=== PATIENT | male | born 2000 | race Caucasian/White ===

== ENCOUNTER 2021-10-08 21:31 | Emergency (ER) | payer SELFPAY ==
[2021-10-08 21:40] VITALS: BP 109/71; PULSE 120; RESP 20; TEMP 36.8; O2SAT 95; BMI 28.5
[2021-10-08 23:13] VITALS: BP 107/62; PULSE 89; RESP 18; O2SAT 100
--- NOTE | 2021-10-08 23:29 | W.ED.NAVMDI ---
HPI - Nausea/Vomiting/Diarrhea General: Chief complaint: Nausea/Vomiting/Diarrhea Stated complaint: N/V/D Time Seen by Provider: 10/08/21 22:52 History of Present Illness: Patient is a 21-year-old male comes to the ED with nausea vomiting and diarrhea. Patient has a history of IBS. Symptoms started today when he woke up. All throughout the day he has had anywhere from 10-20 episodes of diarrhea. He is also having nausea and vomiting close to 10 times a day. He has not been able to keep any food or fluids down. Nobody that he has been in contact with has had any similar symptoms. Patient did say he ate some [employer] last night before going to bed. Denies any fever, chills, upper respiratory symptoms, abdominal pain, blood in the stool or urinary symptoms. Associated nausea: Yes Associated symtoms: Reports nausea; Denies change in vision, chest pain, dysuria, fatigue, headache(s) or palpitations Review of Systems Const: Denies: fever(s), chills or fatigue Eyes: Denies: change in vision or eye discomfort ENMT: Denies: throat pain, odynophagia, nasal discharge or nasal congestion Card: Denies: chest pain, palpitations, edema, swelling of feet/ankles, dyspnea on exertion or orthopnea Resp: Denies: dyspnea, productive cough or non-productive cough GI: Reports: nausea, vomiting and diarrhea; Denies: abdominal pain, constipation or hematochezia : Denies: flank pain, difficulty urinating, dysuria or hematuria Musc: Denies: neck pain, back pain or extremity swelling Skin/Breast: Denies: rash or new lesions Neuro: Denies: headache(s), numbness in extremities or weakness in extremities [facility] ED PFSH: Medical History IBS (irritable bowel syndrome) No pertinent family history Surgical History No pertinent past surgical history Physical Exam Const: COMMON NORMALS: no acute distress, patient oriented x3 and alert GENERAL APPEARANCE: cooperative and comfortable HENMT: COMMON NORMALS: normocephalic HEAD & SCALP: normocephalic MOUTH: Normal oral and palatal mucosa present THROAT: posterior oropharynx normal and uvula midline Eye: COMMON NORMALS: Equal, round and reactive pupils present and conjunctivae normal CONJUNCTIVA: Yes conjunctivae normal PUPIL: Yes Equal, round and reactive pupils present Neck/C-Spine: COMMON NORMALS: supple GENERAL: Yes normal visual inspection Resp: COMMON NORMALS: normal respiratory effort, No retractions, No use of accessory muscles and clear to auscultation bilaterally AUSCULTATION: clear to auscultation bilaterally Cardio: COMMON NORMALS: regular rate, regular rhythm, S1 normal heart sound present, S2 normal heart sound present, No gallops present (Cardio), No clicks present (Cardio), No murmurs present (Cardio) and Peripheral pulses 2+ throughout RATE: regular rate RHYTHM: regular rhythm HEART SOUNDS: S1 normal heart sound present and S2 normal heart sound present PERIPHERAL PULSES: Peripheral pulses 2+ throughout GI: COMMON NORMALS: Normal to inspection, nondistended, normoactive bowel sounds present, Soft to palpation, non-tender and no masses PALPATION: Yes Soft to palpation : COMMON NORMALS: Yes no CVA tenderness BLADDER/KIDNEY EXAM: Yes no CVA tenderness Back/Pelvis: COMMON NORMALS: no CVA tenderness Extremity: COMMON NORMALS: normal to inspection Neuro: COMMON NORMALS: patient oriented x3 and moves all extremities SENSORIUM/ORIENTATION: Yes alert Skin: GENERAL SKIN EXAM: dry skin Course Reevaluation(s): Reevaluation #1: After patient received 1 L of fluids and Zofran his symptoms improved. Patient is a feeling a lot better and does not have any nausea. He was given p.o. juice and water and was able to keep fluids down and has had no episodes of emesis here in the ED. He is stable for discharge home. Time: 00:50 Vital Signs: Vital signs: Vital Signs Temperature 98.2 F 10/08/21 21:40 Pulse Rate 68 10/09/21 01:13 Respiratory Rate 18 10/09/21 01:13 Blood Pressure 110/51 10/09/21 01:13 Pulse Oximetry 98 10/09/21 01:13 MDM - Nausea/Vomiting/Diarrhea Medical Decision Making Patient is a 21-year-old male comes to the ED with acute nausea and vomiting. Patient has a history of IBS. Symptoms started today. Denies any abdominal pain but has had many episodes of diarrhea and emesis today. Denies any fevers or any other symptoms. He did have some [employer] last night before going to bed and woke up with symptoms. Patient was tachycardic upon arrival here in the ED and his pulse was 120. Rest of his vitals were stable. Patient appears in no acute distress or pain upon exam. He has no abdominal tenderness. Rest of exam is benign. White blood cell count 11.8 and the rest of CBC, CMP and UA were unremarkable. Covid test was negative. He was given 1 L of IV fluids and some Zofran here in the ED and tachycardia improved. After the fluids and Zofran his symptoms improved. He was feeling a lot better and had no episodes of emesis here in the ED. He was able to have p.o. fluids without any episodes of emesis here in the ED. Patient nausea and vomiting and symptoms likely due to food poisoning versus GI virus. At Discharge his pulse was 60 and the rest of his vitals were stable. Patient would like a referral to get set up with a PCP. He was discharged home with a prescription for Zofran. He was given strict return to ED precautions. Patient understood and agreed with plan. Lab Data I reviewed the patient's lab results. : 10/08/21 23:16 10/08/21 23:16 Laboratory Results WBC 11.8 10^3/uL (4.0-10.0) H 10/08/21 23:16 RBC 5.20 10^6/uL (4.1-5.3) 10/08/21 23:16 Hgb 15.9 g/dL (11.7-16.6) 10/08/21 23:16 Hct 45.4 % (42.0-52.0) 10/08/21 23:16 MCV 87.3 fl (80-94) 10/08/21 23:16 MCH 30.6 pg (28.0-34.0) 10/08/21 23:16 MCHC 35.0 g/dL (30.0-36.0) 10/08/21 23:16 RDW 12.6 % (12.1-15.1) 10/08/21 23:16 Plt Count 217 10^3/cmm (130-400) 10/08/21 23:16 MPV 11.8 fL (7.4-10.4) H 10/08/21 23:16 Neut % (Auto) 83.1 % 10/08/21 23:16 Lymph % (Auto) 7.5 % 10/08/21 23:16 [place] % (Auto) 8.1 % 10/08/21 23:16 Eos % (Auto) 0.7 % 10/08/21 23:16 Baso % (Auto) 0.3 % 10/08/21 23:16 Neut # (Auto) 9.79 10^3/uL (1.8-7.7) H 10/08/21 23:16 Lymph # (Auto) 0.9 10^3/uL (0.8-4.8) 10/08/21 23:16 [place] # (Auto) 1.0 10^3/uL (0.2-0.9) H 10/08/21 23:16 Eos # (Auto) 0.1 10^3/uL (0.0-0.8) 10/08/21 23:16 Baso # (Auto) 0.0 10^3/uL (0.0-0.1) 10/08/21 23:16 Nucleated RBC % (auto) 0 % 10/08/21 23:16 Nucleated RBCs # 0.0 /100WBC 10/08/21 23:16 Sodium 138 mmol/L (136-145) 10/08/21 23:16 Potassium 4.0 mmol/L (3.5-5.1) 10/08/21 23:16 Chloride 103 mmol/L (98-107) 10/08/21 23:16 Carbon Dioxide 19 mmol/L (22-29) L 10/08/21 23:16 Anion Gap 20.0 (5-19) H 10/08/21 23:16 BUN 16 mg/dL (6-20) 10/08/21 23:16 Creatinine 0.9 mg/dL (0.7-1.2) 10/08/21 23:16 GFR Calculation 106.5 mL/min (90-130) 10/08/21 23:16 Glucose 105 mg/dL (65-115) 10/08/21 23:16 Calculated Osmolality 288 mOsm/kg (285-295) 10/08/21 23:16 Calcium 9.5 mg/dL (8.5-10.5) 10/08/21 23:16 Total Bilirubin 0.6 mg/dL (0.15-1.2) 10/08/21 23:16 AST 16 U/L (0-40) 10/08/21 23:16 ALT 13 U/L (0-41) 10/08/21 23:16 Alkaline Phosphatase 60 IU/L (40-130) 10/08/21 23:16 Total Protein 7.7 g/dL (6.6-8.7) 10/08/21 23:16 Albumin 4.9 g/dL (3.5-5.2) 10/08/21 23:16 Globulin 2.8 g/dL (1.3-4.6) 10/08/21 23:16 Lipase 59 U/L (13-60) 10/08/21 23:16 Urine Color Yellow (Yellow) 10/09/21 00:41 Urine Appearance Clear (CLEAR) 10/09/21 00:41 Urine pH 5 (5-7) 10/09/21 00:41 Ur Specific [place] 1.020 (1.005-1.030) 10/09/21 00:41 Urine Protein Trace (Negative) 10/09/21 00:41 Urine Glucose (UA) Norm (Normal) 10/09/21 00:41 Urine Ketones 3+ (Negative) H 10/09/21 00:41 Urine Blood Neg (Negative) 10/09/21 00:41 Urine Nitrate Negative (Negative) 10/09/21 00:41 Urine Bilirubin 1+ (Negative) H 10/09/21 00:41 Urine Urobilinogen Norm mg/dL (Negative) 10/09/21 00:41 Ur Leukocyte Esterase Negative (Negative) 10/09/21 00:41 Urine RBC 0-4 /hpf (0-2) H 10/09/21 00:41 Urine WBC 0-4 /hpf (0-5) H 10/09/21 00:41 Ur Squamous Epith Cells 0-4 /hpf (0-5) H 10/09/21 00:41 Amorphous Sediment Not Reportable 10/09/21 00:41 Urine Bacteria Trace /hpf (NONE) 10/09/21 00:41 Urine Mucus 2+ /hpf 10/09/21 00:41 Coronavirus 229E (PCR) Not detected (NOT DETECT) 10/09/21 00:41 SARS-CoV-2 (PCR) Not detected (NOT DETECT) 10/09/21 00:41 Discharge Plan Discharge Patient Disposition: Home Clinical Impression: Nausea and vomiting Qualifiers: Vomiting type: unspecified Qualified Code(s): R11.2 - Nausea with vomiting, unspecified Condition: Stable Prescriptions: New ondansetron 4 mg tablet,disintegrating 4 mg PO Q8H PRN (Reason: nausea and vomiting) Qty: 15 0RF Discharge Orders: Discharge ED (Routine); Ordered 10/09/21 Ordered By: Ricci Hoover Discharge Diet: Regular Discharge Activity: Increase activity as tolerated Patient Instructions: Acute Nausea and Vomiting (ED), Viral Syndrome (ED) Activity Restrictions/Additional Instructions: Follow-up with medical provider as directed. Case management should be contacting you in the next several days to set up an appointment with a primary care physician. GI symptoms likely due to virus. Make sure you drink plenty of fluids and stay hydrated. Your Covid test is pending and you can call [employer] [facility] tomorrow to get results. Take medications as prescribed. Return to the ER or your medical provider if condition worsens. Please read and understand discharge instructions. [facility] you [facility]. Please realize this is an emergency room and that we are providing you with a medical screening exam and this may not be complete and all inclusive of all the testing and or work up that you may need to determine your ailment or severity of your illness. It is very important that you follow up as instructed or that you return to the Emergency Department should you have concerns or if your condition changes or worsens in any way. Coding Level of Care Code ED Inspector Filter Tip for Gisela Flynn Exam Comprehensive
[2021-10-08] MEDS: sodium chloride 0.9% 1,000 ML 999 ML IV (23:30)
[2021-10-08 23:34] LABS: Basophils % 0.3 %; Eosinophils # 0.1 10^3/uL (0.0-0.8); Eosinophils % 0.7 %; Hematocrit 45.4 % (42.0-52.0); Hemoglobin 15.9 g/dL (11.7-16.6); Lymphocytes # 0.9 10^3/uL (0.8-4.8); Lymphocytes % 7.5 %; Mean Corpuscular Hemoglobin 30.6 pg (28.0-34.0); Mean Corpuscular Volume 87.3 fl (80-94); Mean Platelet Volume 11.8 fL (7.4-10.4); Monocytes % 8.1 %; Neutrophils # 9.79 10^3/uL (1.8-7.7); Neutrophils % 83.1 %; Nucleated Red Blood Cells % 0 %; Platelet Count 217 10^3/cmm (130-400); Red Cell Distribution Width 12.6 % (12.1-15.1); White Blood Count 11.8 10^3/uL (4.0-10.0)
[2021-10-08 23:43] VITALS: BP 106/55; PULSE 74; RESP 18; O2SAT 100
[2021-10-09 00:06] LABS: Alanine Aminotransferase 13 U/L (0-41); Albumin Level 4.9 g/dL (3.5-5.2); Alkaline Phosphatase 60 IU/L (40-130); Aspartate Amino Transferase 16 U/L (0-40); Blood Urea Nitrogen 16 mg/dL (6-20); Calcium 9.5 mg/dL (8.5-10.5); Carbon Dioxide 19 mmol/L (22-29); Chloride 103 mmol/L (98-107); Globulin 2.8 g/dL (1.3-4.6); Glomerular Filtration Rate 106.5 mL/min (90-130); Glucose 105 mg/dL (65-115); Lipase 59 U/L (13-60); Osmolality Calculated 288 mOsm/kg (285-295); Sodium 138 mmol/L (136-145); Total Bilirubin 0.6 mg/dL (0.15-1.2); Total Protein 7.7 g/dL (6.6-8.7)
[2021-10-09] MEDS: ondansetron 2 mg/ML SDV 2 mL 4 MG IVP (00:07)
[2021-10-09 00:13] VITALS: BP 100/52; PULSE 75; RESP 18; O2SAT 99
[2021-10-09 00:43] VITALS: BP 113/57; PULSE 72; RESP 18; O2SAT 98
[2021-10-09 00:56] LABS: Add Urine Microscopic? YES; Bilirubin Urine 1+ (Negative); Blood Urine Neg (Negative); Glucose Urine UA Norm (Normal); Ketones Urine 3+ (Negative); Leukocyte Esterase Urine Negative (Negative); Nitrate Urine Negative (Negative); Protein Urine Trace (Negative); Urine Appearance Clear (CLEAR); Urine Color Yellow (Yellow); Urobilinogen Urine Norm (Negative); pH Urine 5 (5-7)
[2021-10-09 01:03] LABS: Add Urine Culture? No; Bacteria Urine TRACE /hpf; Mucus Urine 2+ /hpf; RBC Urine 0-4 /hpf (0-2); Squamous Epithelial Cell Urine 0-4 /hpf (0-5); WBC Urine 0-4 /hpf (0-5)
[2021-10-09 01:13] VITALS: BP 110/51; PULSE 68; RESP 18; O2SAT 98
[2021-10-09 02:33] LABS: Adenovirus Not Detected (NOT DETECT); Chlamydia Pneumoniae Not Detected (NOT DETECT); Coronavirus 229E,HKU1,NL63,OC4 Not Detected (NOT DETECT); Human Metapneumovirus Not Detected (NOT DETECT); Human Rhinovirus/Enterovirus Not Detected (NOT DETECT); Influenza A Not Detected (NOT DETECT); Influenza A H1 Not Detected (NOT DETECT); Influenza A H1-2009 Not Detected (NOT DETECT); Influenza A H3 Not Detected (NOT DETECT); Influenza B Not Detected (NOT DETECT); Mycoplasma Pneumoniae Not Detected (NOT DETECT); Parainfluenza Virus Type 1 Not Detected (NOT DETECT); Parainfluenza Virus Type 2 Not Detected (NOT DETECT); Parainfluenza Virus Type 3 Not Detected (NOT DETECT); Parainfluenza Virus Type 4 Not Detected (NOT DETECT); Respiratory Syncytial Virus A Not Detected (NOT DETECT); Respiratory Syncytial Virus B Not Detected (NOT DETECT); SARS-COV-2 Not Detected (NOT DETECT)
--- NOTE | 2021-10-12 11:38 | DCPLANNER ---
manager membership had message to speak with patient about getting established with a primary care physician. manager membership spoke with patient, he said that at this time, he was just wanting information on how much his co pay would be if he was seen by a physician. manager membership told patient that would depend on what clinic he went to and if any tests or labs were completed on patient. manager membership will patient both of the financial agent applications for the hospital to fill out and return.
== END 2021-10-09 01:13 | disposition home or self-care (01) ==
PROVIDERS: Emergency Provider Physician Assistant
DX: R11.2 Nausea with vomiting, unspecified (principal); Z20.822 Contact with and (suspected) exposure to COVID-19
CPT/HCPCS: 80053; 81001; 83690; 85025; 87635; 96361; 96374; 99283; J2405; J7030